=== PATIENT | female | born 1970 | race Caucasian/White ===

== ENCOUNTER → 2020-02-18 | Day surgery (SDC) | payer OTHER ==
[~2020-02-18] MED LIST: Dexamethasone 4 MG/ML 5 ML MDV ONE; HYDROmorphone 0.5 MG/0.5 ML Syringe ONE; Haloperidol Lactate 5 MG/ML SDV IVPUSH PRN; Ketorolac 30 MG/ML SDV ONE; Lactated Ringers 1,000 ML ONE; Lidocaine 1% 4 ML ONE; Lidocaine 1% with EPINEPHrine 1:100,000 20 ML MDV ONE; Lidocaine 1%/Sod Bicarbonate in NS 8.4% 1 ML Syringe IDERM PRN; Midazolam 1 MG/ML 2 ML SDV ONE; Ondansetron 4 MG/2 ML SDV ONE; Propofol 200 MG/20 ML SDV ONE; Rocuronium 50 MG/5 ML Vial ONE; Sodium Chloride 0.9% 10 ML Syringe FLUSH PRN; Sodium Chloride 0.9% 50 ML SDV ONE; ceFAZolin 1 GM Vial ONE; diphenhydrAMINE 50 MG/ML SDV ONE; fentaNYL 250 MCG/5 ML SDV ONE
[2020-02-18] MEDS: Lactated Ringers 1,000 ML IV SCH ×2 (08:00→10:15)
--- NOTE | 2020-02-18 08:02 | PCM.PREANE ---
Preanesthetic Assessment - Procedure Proposed Procedure: Bladder sling - Anesthesia/Transfusion/Family Hx Anesthesia History: Prior Anesthesia Reaction (Nausea) Family History of Anesthesia Reaction: No Transfusion History: No Prior Transfusion(s) - Review of Systems General: No Symptoms Pulmonary: No Symptoms Cardiovascular: No Symptoms Gastrointestinal: No Symptoms Neurological: No Symptoms Other: Reports: None - Physical Assessment NPO Status Date: 02/17/20 NPO Status Time: 00:00 Height: 1.63 m Weight: 89.3 kg ASA Class: 2 Mental Status: Alert & Oriented x3 Airway Class: Mallampati = 1 Dentition: Reports: Normal Dentition Thyro-Mental Finger Breadths: 3 Mouth Opening Finger Breadths: 3 ROM/Head Extension: Full Lungs: Clear to Auscultation, Normal Respiratory Effort Cardiovascular: Regular Rate, Regular Rhythm - Lab Values: Laboratory Last Values Urine HCG, Qual Negative (NEGATIVE) 02/18/20 07:34 - Allergies Allergies/Adverse Reactions: Allergies Allergy/AdvReac Type Severity Reaction Status Date / Time No Known Allergies Allergy Verified 02/17/20 12:55 - Anesthesia Plan Pre-Op Medication Ordered: None - Acknowledgements Anesthesia Type Planned: General Anesthesia Pt an Appropriate Candidate for the Planned Anesthesia: Yes Alternatives and Risks of Anesthesia Discussed w Pt/Guardian: Yes Pt/Guardian Understands and Agrees with Anesthesia Plan: Yes PreAnesthesia Questionnaire Cardiovascular History: Reports: High Cholesterol, Hypertension Gastrointestinal History: Reports: GERD Genitourinary History: Reports: Urinary Incontinence, Other (See Below) Other Genitourinary History: stress incontinence [employer]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: Neurological History: Reports: Migraines Psychiatric History: Reports: Anxiety - Past Surgical History HEENT Surgical History: Reports: Naso-Sinus Surgery GI Surgical History: Reports: Cholecystectomy Female Surgical History: Reports: LEEP, Other (See Below) - SUBSTANCE USE Smoking Status *Q: Never Smoker Recreational Drug Use History: No - HOME MEDS Home Medications: Home Meds Chlorthalidone 25 mg PO DAILY 02/17/20 [History] Fenofibrate Nanocrystallized [Fenofibrate] 145 mg PO DAILY 02/17/20 [History] LORazepam [Lorazepam] 0.5 mg PO DAILY 02/17/20 [History] Loratadine [Claritin] 10 mg PO DAILY 02/17/20 [History] Loratadine/Pseudoephedrine [Allergy Relief-Nasal Decong Tb] 1 each PO DAILY [History] Losartan Potassium 25 mg PO DAILY 02/17/20 [History] Norethindrone-Ethin. Estradiol [Nortrel 1-35 21 Tablet] 1 tab PO DAILY 02/17/20 [History] Pantoprazole [ProTONIX] 40 mg PO DAILY 02/17/20 [History] Potassium Chloride 20 meq PO DAILY 02/17/20 [History] Rosuvastatin Calcium 40 mg PO DAILY 02/17/20 [History] atorvaSTATin [Lipitor] 40 mg PO DAILY 02/17/20 [History] - CURRENT (IN HOUSE) MEDS Current Meds: Current Medications Lactated Ringer's (Ringers, Lactated) 1,000 mls @ 125 mls/hr IV ASDIRECTED TATIANA Stop: 02/18/20 23:00 Lidocaine/Sodium Bicarbonate (Buffered Lidocaine 1% In Ns 8.4%) 0.25 ml IDERM ONETIME PRN PRN Reason: Prior to IV Start Stop: 02/18/20 18:00 Sodium Chloride (Saline Flush) 10 ml FLUSH ASDIRECTED PRN PRN Reason: Keep Vein Open Stop: 02/18/20 18:00 Discontinued Medications Cefazolin Sodium (Ancef) Confirm Administered Dose 2 gm .ROUTE .STK-MED ONE Stop: 02/18/20 07:44 Dexamethasone (Dexamethasone) Confirm Administered Dose 20 mg .ROUTE .STK-MED ONE Stop: 02/18/20 07:44 Fentanyl (Sublimaze) Confirm Administered Dose 250 mcg .ROUTE .STK-MED ONE Stop: 02/18/20 07:43 Lidocaine HCl (Xylocaine-Mpf 1%) Confirm Administered Dose 4 mls @ as directed .ROUTE .STK-MED ONE Stop: 02/18/20 07:44 Ketorolac Tromethamine (Toradol) Confirm Administered Dose 30 mg .ROUTE .STK- MED ONE Stop: 02/18/20 07:44 Midazolam HCl (Versed 1 Mg/Ml) Confirm Administered Dose 2 mg .ROUTE .STK-MED ONE Stop: 02/18/20 07:43 Ondansetron HCl (Zofran) Confirm Administered Dose 4 mg .ROUTE .STK-MED ONE Stop: 02/18/20 07:43 Propofol (Diprivan 20 Ml) Confirm Administered Dose 200 mg .ROUTE .STK-MED ONE Stop: 02/18/20 07:43 Rocuronium [place] (Zemuron) Confirm Administered Dose 50 mg .ROUTE .STK-MED ONE Stop: 02/18/20 07:43
--- NOTE | 2020-02-18 09:46 | PCM.OPNOTE ---
- General Post-Op/Procedure Note Date of Surgery/Procedure: 02/18/20 Operative Procedure(s): Subfascial, midurethral sling procedure Findings: Grade one cystocele Pre Op Diagnosis: 1. Stress Urinary Incontinence. 2. 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 Fluid Replacement, Intraop: 1,800 Output, Urine Amount: 70 EBL in mLs: 5 Drain/Tube Comments:: Red rubber catheter to drain bladder and fill bladder only. Complications: None Condition: Good Free Text/Narrative:: Surgery duration: 14 minutes Procedure: The patient was taken the operating room and placed in supine position on the operating table. She was adequately consented for the procedure. She was given 2 g of Ancef preoperatively for infection prophylaxis and had sequential compression stockings in place for DVT prophylaxis. 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 She was given general endotracheal anesthesia. She was placed in the dorsal lithotomy position. Her bladder was again drained with a red rubber catheter. 70 cc of normal urine were removed. The epithelium overlying the urethra was grasped approximately 1 cm from the urethral meatus and approximately 2 cm cephalad from there with Allis clamps. The area of the skin overlying the medial aspect of the obturator foramen on each side just posterior to the origin the abductor longus muscle was marked with a marking pen. These 2 areas and the sub-fascial layer of the vaginal were then infiltrated with lidocaine quarter percent with epinephrinetotal of approximately 10 mL was used. incisions made in the epithelium overlying the urethra and 2 small stab wounds 3 mm in length were made in the 2 areas of the panty line of the patient. The subfascial planes were adequately dissected bilaterally to allow placement of the mesh. The helical adapter was then placed through the obturator on patient's left side, then brought out through the vaginal subfascial plane. Mesh was attached to it and then was pulled back through the obturator foramen. Same was done on the right side. Mesh was then snugged up to a Dilator 15 mm in diameter which was was used as a spacer to place the mesh in a tension-free position. At this point the mesh was cut off at the skin surface and the dilator was removed. The midline epithelium was closed with a short running suture of 3-0 Monocryl. Skin incisions were closed with Dermabond skin glue. These bladder was filled with approximately 240 cc of normal saline to facilitate voiding and therefore discharged home. The patient was returned to supine position, awakened from general endotracheal anesthesia and was discharged from operating room in good condition
--- NOTE | 2020-02-18 09:56 | PCM.POSTAN ---
POST ANESTHESIA ASSESSMENT - MENTAL STATUS Mental Status: Alert, Oriented - VITAL SIGNS Vital Signs: Last Vital Signs Temp 36.4 C 02/18/20 07:40 Pulse 99 02/18/20 07:40 Resp 16 02/18/20 07:40 BP 158/99 H 02/18/20 07:40 Pulse Ox 97 02/18/20 07:40 - RESPIRATORY Respiratory Status: Respiratory Rate WNL, Airway Patent, O2 Saturation Stable, Supplemental Oxygen - CARDIOVASCULAR CV Status: Pulse Rate WNL, Blood Pressure Stable - GASTROINTESTINAL GI Status: No Symptoms - PAIN Pain Score: 0 - POST OP HYDRATION Hydration Status: Adequate & Stable - OBSERVATIONS Free Text/Narrative:: no anesthesia complications noted
--- NOTE | 2020-02-18 10:45 | PCM48HPAN ---
Post Anesthesia Note - EVALUATION WITHIN 48HRS OF ANESTHETIC Vital Signs in Normal Range: Yes Patient Participated in Evaluation: Yes Respiratory Function Stable: Yes Airway Patent: Yes Cardiovascular Function Stable: Yes Hydration Status Stable: Yes Pain Control Satisfactory: Yes Nausea and Vomiting Control Satisfactory: Yes Mental Status Recovered: Yes Vital Signs: Last Vital Signs Temp 36.9 C 02/18/20 09:47 Pulse 99 02/18/20 07:40 Resp 14 02/18/20 10:30 BP 114/69 02/18/20 10:30 Pulse Ox 92 L 02/18/20 10:30 - COMMENTS/OBSERVATIONS Free Text/Narrative:: no anesthesia complications noted
== END | disposition home or self-care (01) ==
LOC: JD.SDS 07:29
PROVIDERS: ATTEND Obstetrics & Gynecology
DX: N39.3 Stress incontinence (female) (male) (principal); N36.41 Hypermobility of urethra; N81.10 Cystocele, unspecified; K21.9 Gastro-esophageal reflux disease without esophagitis; E78.5 Hyperlipidemia, unspecified; I10 Essential (primary) hypertension; E78.00 Pure hypercholesterolemia, unspecified; F41.9 Anxiety disorder, unspecified; Z79.899 Other long term (current) drug therapy
CPT/HCPCS: 57288; 81025; C1771; J0690; J1100; J1170; J1200; J1630; J1885; J2001; J2250; J2405; J2704; J3010; J7120; 00860

== ENCOUNTER 2022-03-02 23:23 | Emergency (ER) | payer OTHER ==
[2022-03-03] MEDS ORDERED: Lactated Ringers 1,000 ML IV ONE (02:25)
[2022-03-03] MEDS ORDERED: Ondansetron 4 MG/2 ML SDV IVPUSH ONE (02:25)
[2022-03-03] MEDS ORDERED: Diphtheria,Pertussis(Acell),Tetanus Vaccine 0.5 ML Syringe IM ONE (02:27)
[2022-03-03] MEDS ORDERED: Lactated Ringers 1,000 ML IV SCH (02:30)
[2022-03-03 03:04] LABS: ESTIMATED GFR > 60 mL/min (>60)
[2022-03-03] MEDS ORDERED: Potassium Chloride 20 MEQ Tab.ER PO ONE (03:41)
[2022-03-03] MEDS ORDERED: Lidocaine 1% 10 ML MDV INJECT ONE (04:17)
== END 2022-03-03 05:10 | disposition home or self-care (01) ==
LOC: JD.ED 23:23
DX: S01.01XA Laceration without foreign body of scalp, initial encounter (principal); F10.129 Alcohol abuse with intoxication, unspecified; E78.00 Pure hypercholesterolemia, unspecified; I10 Essential (primary) hypertension; K21.9 Gastro-esophageal reflux disease without esophagitis; Z79.899 Other long term (current) drug therapy; Y90.1 Blood alcohol level of 20-39 mg/100 ml; W22.09XA Striking against other stationary object, initial encounter
CPT/HCPCS: 12001; 36415; 70450; 72125; 80053; 80307; 85025; 85610; 85730; 96374; 99284; A9270; J2405; J7120